=== PATIENT | female | born 1945 | race Caucasian/White ===

== ENCOUNTER → 2021-06-04 | Outpatient (CLI) | payer MEDICARE, OTHER ==
[~2021-06-04] MED LIST: ALENDRONATE SOD35 MG PO; AMBIEN10 MG PO; AMBIEN5 MG PO; ARICEPT10 MG PO; ASPIR-LOW81 MG PO; ATORVASTATIN CA40 MG PO; BACTRIM DS TAB1 EACH PO; BD ULTRA-FINE1 EAC2 MC; BENZTROPINE MESY1 MG PO; BUMETANIDE1 MG PO; BUMEX 1MG TABLET1 MG PO; BUPROPION XL150 MG PO; CARDIZEM CD300 MG PO; CATAPRES 0.1MG0.1 MG PO; CATAPRES0.2 MG PO; CATAPRES0.3 MG PO; CEFUROXIME250 MG PO; CHRONULAC20 GM/30 M PO; COGENTIN 2MG TAB2 MG PO; COLACE 100MG C100 MG PO; DILTIAZEM ER300 MG PO; DOC-Q-LAX TABL1 EACH PO; ELIQUIS2.5 MG PO; FEOSOL325 MG PO; FLAGYL500 MG PO; FLORINEF 0.1 M0.1 MG PO; HYDRALAZINE HC100 MG PO; HYDRALAZINE HCL50 MG PO; INJECTAFER750 MG/15 INJ; KEFLEX CAP 500500 MG PO; KLONOPIN TAB 00.5 MG PO; LANTUS INS100 UTS/M1 SQ; LEVEMIR100 UNIT/1 SQ; LIPITOR TAB 2020 MG PO; LIPITOR40 MG PO; LORTAB 5-325 M1 EACH PO; LORTAB 7.5-3251 EACH PO; MIRALAX17 GM PO; NORCO 10-325 T1 EACH PO; NOVOLOG 10100 UNITS/ SQ; NOVOLOG FL100 UNIT/1 SQ; OMEPRAZOLE20 MG PO; PERCOCET 10-321 EACH PO; PRILOSEC OTC20 MG PO; RISPERDAL1 MG PO; RISPERDAL2 MG PO; RISPERDAL3 MG PO; SENSIPAR30 MG PO; TAZTIA XT300 MG PO; THERAGRAN M TAB1 EA PO; TIAZAC180 MG PO; WELLBUTRIN XL300 M1 PO; [UNRECOGNIZED DRUG - OTHER] PO; [UNRECOGNIZED DRUG - OTHER] TP
== END ==
LOC: RAD 08:30
DX: R13.10 Dysphagia, unspecified (principal)
CPT/HCPCS: 74230; 92611-GN

== ENCOUNTER 2021-10-27 19:27 | Inpatient (IN) | payer MEDICARE, OTHER ==
[~2021-10-27] VITALS: Ht 162.6 cm; Wt 85.3 kg
[~2021-10-27 19:27] MED LIST changes: +DILTIAZEM 24HR240 M1 PO; -TAZTIA XT300 MG PO
[2021-10-27 20:26] LABS: HEMOGLOBIN 12.4 gm/dl (12.3-15.3); RED BLOOD COUNT 3.9 M/UL (4.00-5.10); WHITE BLOOD COUNT 20.1 K/UL (4.5-11.0)
[2021-10-28 04:28] LABS: HEMOGLOBIN 11.6 gm/dl (12.3-15.3); RED BLOOD COUNT 3.68 M/UL (4.00-5.10)
[2021-10-28 04:29] LABS: WHITE BLOOD COUNT 12.9 K/UL (4.5-11.0)
[2021-10-28] MEDS ORDERED: OMEPRAZOLE40 MG PO (10:00)
[2021-10-28] MEDS ORDERED: TRULICITY0.75 MG/0. SQ (10:01)
[2021-10-28] MEDS ORDERED: SENNA8.6 MG PO (10:01)
[2021-10-28] MEDS ORDERED: CRESTOR20 MG PO (10:01)
[2021-10-28] MEDS ORDERED: KLONOPIN TAB 00.5 MG PO (10:01)
[2021-10-28] MEDS ORDERED: GENERLAC10 GM/15 M PO (10:02)
[2021-10-28] MEDS ORDERED: TRESIBA FL100 UNIT/1 SQ (10:02)
[2021-10-28] MEDS ORDERED: CLONIDINE HCL0.2 MG PO (10:02)
[2021-10-28] MEDS ORDERED: TYLENOL 8 HOUR650 MG PO (10:03)
[2021-10-28] MEDS ORDERED: TRAMADOL HCL50 MG PO (10:03)
[2021-10-28] MEDS ORDERED: FERRO-TIME325 MG PO (10:04)
[2021-10-28] MEDS ORDERED: BUPROPION HCL75 MG PO (10:04)
[2021-10-28] MEDS ORDERED: DRISDOL1250 MCG PO (10:04)
[2021-10-28] MEDS ORDERED: HYDRALAZINE HCL50 MG PO (10:04)
[2021-10-28] MEDS ORDERED: SODIUM BICARBO650 MG PO (10:05)
[2021-10-28] MEDS ORDERED: NOVOLOG FL100 UNIT/1 SQ (10:05)
[2021-10-28] MEDS ORDERED: TYLENOL EXTRA500 MG PO (10:05)
[2021-10-28] MEDS ORDERED: MULTIVITAMIN1 EACH PO (10:06)
[2021-10-28] MEDS ORDERED: ANTACID LIQUID355 ML PO (10:06)
[2021-10-28] MEDS ORDERED: ARTHRITIS PAIN150 GM TOP (10:07)
[2021-10-28] MEDS ORDERED: ALOE VESTA 43% TOP (10:09)
[2021-10-28] MEDS ORDERED: BISACODYL10 MG PR (10:10)
[2021-10-29 03:11] LABS: HEMOGLOBIN 11.4 gm/dl (12.3-15.3); RED BLOOD COUNT 3.63 M/UL (4.00-5.10)
[2021-10-29 03:12] LABS: WHITE BLOOD COUNT 6.5 K/UL (4.5-11.0)
--- NOTE | 2021-10-29 04:02 | NUR ---
LAB CALLED WITH A CRITICAL BUN OF 100, PROVIDER MADE AWARE STATED "OK THANK YOU"
--- NOTE | 2021-10-29 11:51 | NUR ---
PTS FLUID CHANGED FROM NS TO NS BICARB AT THIS TIME
--- NOTE | 2021-10-29 17:04 | NUR ---
DR. HAGEN STATES CAN DC [facility] IF DR. OLMSTEAD PLACED ORDER, AND IF JUAN PLACED ORDER THEN CALL [facility].
--- NOTE | 2021-10-30 03:47 | NUR ---
PT BASELINE FROM START OF SHIFT ASSESSMENT GREATLY DECREASED WITHIN A 3 HOUR TIME FRAME. AFTER FURTHER ASSESSMENT, THE CODING MANAGER HOSPIALIST WAS CALLED, DR. BRADSHAW, ON 10/29/21 AT 2200 REGARDING PT'S NEW SUDDEN ONSET OF SOA, TACHYCARDIA, SHALLOW RESPIRATIONS, AUDIBLE WHEEZING IN [place] AND DIMINISHED SOUNDS IN RLL. CURRENTLY ON 2L NASAL CANNULA WITH AN OXYGEN SATURATION OF 84%. PT HAS H/O COPD, AFIB, CKD STAGE 3. NO CURRENT ORDERS FOR TELE/PULSE OX MONITORING. PER DR. BRADSHAW, VERBAL ORDERS PLACED FOR STAT EKG, STAT CHEST X-RAY, TELE/PULSE OX, DUO-NEBULIZER BREATHING TREATMENTS NEEDED, 2 SETS OF CARDIAC PANELS NOW WITH A REPEAT IN 3 HOURS, AND DISCONTINUE IV FLUIDS.
[2021-10-30 07:11] LABS: HEMOGLOBIN A1C 7.4 % (4.8-5.6)
--- NOTE | 2021-10-30 12:21 | NUR ---
PATIENT ASSESSED AT 0730 THIS MORNING, UPON SHIFT ARRIVAL. PATIENTS SHIFT ASSESSMENT CHARTED LATER IN THE SHIFT, DISREGARD TIME, INITAL ASSESSMENT OF PATIENT WAS COMPLETED AT 0730.
--- NOTE | 2021-10-30 15:59 | NUR ---
ORDER DC'D PER DR. HAGEN DUE TO DR. APPLE RECOMMENDATIONS
--- NOTE | 2021-10-30 17:04 | NUR ---
RECTAL TUBE PLACED PER DR. HOOD. PATIENT TOLERATED PROCEDURE WELL. LONI, LINEN SORTER AT BEDSIDE TO WITNESS INSERTION OF RECTAL TUBE. NO OUTPUT NOTED OF TUBE.
[2021-10-31 03:18] LABS: HEMOGLOBIN 9.7 gm/dl (12.3-15.3); WHITE BLOOD COUNT 5.3 K/UL (4.5-11.0)
[2021-10-31 03:28] LABS: RED BLOOD COUNT 3.11 M/UL (4.00-5.10)
[2021-11-01 03:45] LABS: HEMOGLOBIN 9.8 gm/dl (12.3-15.3); RED BLOOD COUNT 3.1 M/UL (4.00-5.10)
[2021-11-01 04:03] LABS: WHITE BLOOD COUNT 6.8 K/UL (4.5-11.0)
[2021-11-02 00:18] LABS: ADENOVIRUS F 40/41 Not Detected (Negative); ASTROVIRUS Not Detected (Negative); CAMPYLOBACTER Not Detected (Negative); CRYPTOSPORIDIUM Not Detected (Negative); E.COLI 0157 Not Detected (Negative); ENTAMOEBA HISTOLYTICA Not Detected (Negative); ENTEROAGGREGATIVE E.COLI (EAEC Not Detected (Negative); ENTEROPATHOGENIC E.COLI (EPEC) Not Detected (Negative); ENTEROTOXIGENIC E.COLI (ETEC) Not Detected (Negative); GIARDIA LAMBLIA Not Detected (Negative); NOROVIRUS GI/GII Not Detected (Negative); PLESIOMONAS SHIGELLOIDES Not Detected (Negative); ROTOVIRUS A Not Detected (Negative); SALMONELLA Not Detected (Negative); SAPOVIRUS Not Detected (Negative); SHIG/ENTEROINVAS.ECOLI (EIEC) Not Detected (Negative); SHIGA-LIK TOX.PRO.E.COLI (STEC Not Detected (Negative); VIBRIO Not Detected (Negative); VIBRIO CHOLERAE Not Detected (Negative); YERSINIA ENTEROCOLITICA Not Detected (Negative)
[2021-11-02 02:21] LABS: HEMOGLOBIN 8.9 gm/dl (12.3-15.3); RED BLOOD COUNT 2.82 M/UL (4.00-5.10); WHITE BLOOD COUNT 7.9 K/UL (4.5-11.0)
[2021-11-03 03:08] LABS: HEMOGLOBIN 9.1 gm/dl (12.3-15.3); RED BLOOD COUNT 2.91 M/UL (4.00-5.10); WHITE BLOOD COUNT 7.8 K/UL (4.5-11.0)
--- NOTE | 2021-11-03 10:50 | NUR ---
DR. CONCEPCION NOTIFIED PER DR. MCGRAW REQUEST FOR TEMPORARY DIALYSIS PLACEMENT
[2021-11-04 03:11] LABS: HEMOGLOBIN 8.8 gm/dl (12.3-15.3); RED BLOOD COUNT 2.81 M/UL (4.00-5.10); WHITE BLOOD COUNT 6.6 K/UL (4.5-11.0)
[2021-11-04 09:10] LABS: HBSAG SCREEN Negative (Negative); HCV AB <0.1 (0.0-0.9); HEP A AB, IGM Negative (Negative); HEP B CORE AB, IGM Negative (Negative)
[2021-11-05 03:21] LABS: HEMOGLOBIN 8.4 gm/dl (12.3-15.3); RED BLOOD COUNT 2.68 M/UL (4.00-5.10)
[2021-11-05 03:25] LABS: WHITE BLOOD COUNT 8.8 K/UL (4.5-11.0)
[2021-11-06 02:35] LABS: HEMOGLOBIN 8.7 gm/dl (12.3-15.3); RED BLOOD COUNT 2.72 M/UL (4.00-5.10); WHITE BLOOD COUNT 9.7 K/UL (4.5-11.0)
[2021-11-06 13:09] LABS: ANTI-CENTROMERE B ANTIBODIES <0.2 AI (0.0-0.9); ANTI-DNA (DS) AB QN <1 IU/mL (0-9); ANTI-JO-1 <0.2 AI (0.0-0.9); ANTICHROMATIN ANTIBODIES <0.2 AI (0.0-0.9); ANTIRIBOSOMAL P ANTIBODIES <0.2 AI (0.0-0.9); ANTISCLERODERMA-70 ANTIBODIES 1.3 AI (0.0-0.9); RNP ANTIBODIES <0.2 AI (0.0-0.9); SJOGREN'S ANTI-SS-A <0.2 AI (0.0-0.9); SJOGREN'S ANTI-SS-B <0.2 AI (0.0-0.9); SMITH ANTIBODIES <0.2 AI (0.0-0.9); SMITH/RNP ANTIBODIES 0.2 AI (0.0-0.9)
[2021-11-07 08:26] LABS: HEMOGLOBIN 8.7 gm/dl (12.3-15.3); RED BLOOD COUNT 2.8 M/UL (4.00-5.10); WHITE BLOOD COUNT 11.9 K/UL (4.5-11.0)
[2021-11-08 07:18] LABS: HEMOGLOBIN 7.6 gm/dl (12.3-15.3); WHITE BLOOD COUNT 11.5 K/UL (4.5-11.0)
[2021-11-08 07:32] LABS: RED BLOOD COUNT 2.38 M/UL (4.00-5.10)
[2021-11-08 07:43] LABS: BUN/CREATININE RATIO 19 (0-10)
--- NOTE | 2021-11-08 12:50 | NUR ---
PT NEW DIALYSIS CATH SITE IN RIGHT CHEST WALL WNL. NO BLEEDING NOTED. SITE COVERED WITH 2X2 AND TEGADERM. SPOKE WITH DR THIBODEAUX VIA TELEPHONE TO VERIFY THAT NEW CATH IS OK TO USE FOR DIALYSIS TODAY. DR THIBODEAUX STATED THAT IT WAS GOOD FOR USE TODAY. HE SAID THE TEMPORARY SITE LOCATED IN LEFT NECK COULD BE LEFT FOR IV ACCESS OR REMOVED. DIALYSIS NURSE NOTIFIED.
[2021-11-09 07:28] LABS: RED BLOOD COUNT 2.3 M/UL (4.00-5.10)
[2021-11-09 07:29] LABS: WHITE BLOOD COUNT 14.9 K/UL (4.5-11.0)
[2021-11-09 23:58] LABS: HEMOGLOBIN 8.5 gm/dl (12.3-15.3)
[2021-11-11 04:04] LABS: HEMOGLOBIN 8.5 gm/dl (12.3-15.3)
[2021-11-11 04:14] LABS: RED BLOOD COUNT 2.83 M/UL (4.00-5.10); WHITE BLOOD COUNT 11.1 K/UL (4.5-11.0)
[2021-11-12] MEDS ORDERED: LOPRESSOR 25 MG25 MG PO (11:24)
--- NOTE | 2021-11-12 13:17 | NUR ---
[facility] CALLED TO TRANSPORT PT
--- NOTE | 2021-11-12 17:01 | NUR ---
[facility] CALLED BACK FOR ETA. THEY STATE WILL HAVE SOMEONE CALL ME
== END 2021-11-12 19:09 | DRG 871 ==
LOC: ER1 19:27 → CDU 23:41 → M/S 23:41
PROVIDERS: Emergency Medicine; Internal Medicine; Internal Medicine Infectious Disease; Internal Medicine Nephrology; ADMIT Internal Medicine
PROC: 3E03329 Introduction of Other Anti-infective into Peripheral Vein, Percutaneous Approach (ICD-10-PCS; principal; 2021-10-28)
PROC: 05HN33Z Insertion of Infusion Device into Left Internal Jugular Vein, Percutaneous Approach (ICD-10-PCS; 2021-11-03)
PROC: 5A1D70Z Performance of Urinary Filtration, Intermittent, Less than 6 Hours Per Day (ICD-10-PCS; 2021-11-03)
PROC: 5A1D70Z Performance of Urinary Filtration, Intermittent, Less than 6 Hours Per Day (ICD-10-PCS; 2021-11-05)
PROC: 5A1D70Z Performance of Urinary Filtration, Intermittent, Less than 6 Hours Per Day (ICD-10-PCS; 2021-11-06)
PROC: 0JH63XZ Insertion of Tunneled Vascular Access Device into Chest Subcutaneous Tissue and Fascia, Percutaneous Approach (ICD-10-PCS; 2021-11-08)
PROC: 02HV33Z Insertion of Infusion Device into Superior Vena Cava, Percutaneous Approach (ICD-10-PCS; 2021-11-08)
PROC: 5A1D70Z Performance of Urinary Filtration, Intermittent, Less than 6 Hours Per Day (ICD-10-PCS; 2021-11-08)
PROC: 30233N1 Transfusion of Nonautologous Red Blood Cells into Peripheral Vein, Percutaneous Approach (ICD-10-PCS; 2021-11-09)
PROC: 5A1D70Z Performance of Urinary Filtration, Intermittent, Less than 6 Hours Per Day (ICD-10-PCS; 2021-11-10)
DX: A41.9 Sepsis, unspecified organism (principal); G93.41 Metabolic encephalopathy; E66.2 Morbid (severe) obesity with alveolar hypoventilation; A09 Infectious gastroenteritis and colitis, unspecified; N17.9 Acute kidney failure, unspecified; E87.2 Acidosis; K55.9 Vascular disorder of intestine, unspecified; N18.5 Chronic kidney disease, stage 5; Z20.822 Contact with and (suspected) exposure to COVID-19; E86.0 Dehydration; K59.00 Constipation, unspecified; K52.89 Other specified noninfective gastroenteritis and colitis; E11.22 Type 2 diabetes mellitus with diabetic chronic kidney disease; E11.40 Type 2 diabetes mellitus with diabetic neuropathy, unspecified; I48.0 Paroxysmal atrial fibrillation; K59.09 Other constipation; E87.5 Hyperkalemia; F03.90 Unspecified dementia, unspecified severity, without behavioral disturbance, psychotic disturbance, mood disturbance, and anxiety; R65.20 Severe sepsis without septic shock; Z66 Do not resuscitate; L89.152 Pressure ulcer of sacral region, stage 2; E83.52 Hypercalcemia; Z96.652 Presence of left artificial knee joint; R53.81 Other malaise; R13.10 Dysphagia, unspecified; E83.39 Other disorders of phosphorus metabolism; D63.1 Anemia in chronic kidney disease; Z68.32 Body mass index [BMI] 32.0-32.9, adult; Z83.3 Family history of diabetes mellitus; Z79.899 Other long term (current) drug therapy; Z74.01 Bed confinement status; Z99.2 Dependence on renal dialysis; Z79.82 Long term (current) use of aspirin
CPT/HCPCS: 0240U; 36415; 36430; 70450; 71045; 74018; 74230; 77001; 80048; 80053; 80074; 81001; 82550; 82553; 82607; 82728; 82746; 82962; 83036; 83516; 83540; 83550; 83605; 83735; 83880; 84100; 84439; 84443; 84484; 85014; 85018; 85025; 85027; 86140; 86235; 86431; 86850; 86900; 86901; 86920; 87040; 87086; 87507; 90935; 90937; 92526; 92610; 92611-GN; 93005; 94640; 94664; 94760; 96361; 96365; 96366; 96367; 96375; 97110; 97110-GP-CQ; 97162; 97166; 97530; 97530-GP-CQ; 99285; C1750; C1769; C9113; J0690; J1100; J1642; J1650; J2001; J2185; J2270; J2405; J2704; J3370; J3480; J7040; J7050; P9016; P9047

== ENCOUNTER 2021-11-14 12:22 | Observation (INO) | payer MEDICARE, OTHER ==
[~2021-11-14] VITALS: Ht 162.6 cm; Wt 84.8 kg
[~2021-11-14 12:22] MED LIST changes: +ALOE VESTA 43% TOP; +ANTACID LIQUID355 ML PO; +ARTHRITIS PAIN150 GM TOP; +BISACODYL10 MG PR; +BUPROPION HCL75 MG PO; +CLONIDINE HCL0.2 MG PO; +CRESTOR20 MG PO; +DRISDOL1250 MCG PO; +FERRO-TIME325 MG PO; +GENERLAC10 GM/15 M PO; +LOPRESSOR 25 MG25 MG PO; +MULTIVITAMIN1 EACH PO; +OMEPRAZOLE40 MG PO; +SENNA8.6 MG PO; +SODIUM BICARBO650 MG PO; +TRAMADOL HCL50 MG PO; +TRESIBA FL100 UNIT/1 SQ; +TRULICITY0.75 MG/0. SQ; +TYLENOL 8 HOUR650 MG PO; +TYLENOL EXTRA500 MG PO
[2021-11-14 14:05] LABS: HEMOGLOBIN 8.1 gm/dl (12.3-15.3); RED BLOOD COUNT 2.64 M/UL (4.00-5.10); WHITE BLOOD COUNT 7.7 K/UL (4.5-11.0)
[2021-11-14 14:39] LABS: BUN/CREATININE RATIO 18 (0-10)
[2021-11-15 06:36] LABS: HEMOGLOBIN 7.6 gm/dl (12.3-15.3); RED BLOOD COUNT 2.45 M/UL (4.00-5.10); WHITE BLOOD COUNT 6.1 K/UL (4.5-11.0)
[2021-11-16 02:21] LABS: HEMOGLOBIN 7.5 gm/dl (12.3-15.3); RED BLOOD COUNT 2.51 M/UL (4.00-5.10); WHITE BLOOD COUNT 5.8 K/UL (4.5-11.0)
[2021-11-16] MEDS ORDERED: LOPRESSOR 25 MG25 MG PO (11:41)
[2021-11-16] MEDS ORDERED: CALCIUM ACETAT667 M1 PO (11:41)
[2021-11-16] MEDS ORDERED: CEFUROXIME500 MG PO (11:49)
== END 2021-11-16 17:02 ==
LOC: ER1 12:22 → MED SURG 4 16:41 → CDU 16:41 → MED SURG 4 18:31
PROVIDERS: Physician Assistant; Physician Assistant Medical; ADMIT Internal Medicine
DX: G93.41 Metabolic encephalopathy (principal); N39.0 Urinary tract infection, site not specified; F03.90 Unspecified dementia, unspecified severity, without behavioral disturbance, psychotic disturbance, mood disturbance, and anxiety; F25.9 Schizoaffective disorder, unspecified; N17.9 Acute kidney failure, unspecified; I12.0 Hypertensive chronic kidney disease with stage 5 chronic kidney disease or end stage renal disease; E11.22 Type 2 diabetes mellitus with diabetic chronic kidney disease; N18.6 End stage renal disease; D63.1 Anemia in chronic kidney disease; I48.0 Paroxysmal atrial fibrillation; K52.9 Noninfective gastroenteritis and colitis, unspecified; L89.152 Pressure ulcer of sacral region, stage 2; J32.2 Chronic ethmoidal sinusitis; H70.92 Unspecified mastoiditis, left ear; K21.9 Gastro-esophageal reflux disease without esophagitis; Z72.3 Lack of physical exercise; E55.9 Vitamin D deficiency, unspecified; Z20.822 Contact with and (suspected) exposure to COVID-19; Z99.2 Dependence on renal dialysis; Z87.891 Personal history of nicotine dependence; Z79.82 Long term (current) use of aspirin; Z79.891 Long term (current) use of opiate analgesic; Z79.899 Other long term (current) drug therapy; Z88.0 Allergy status to penicillin
CPT/HCPCS: 0240U; 36415; 70450; 70551; 71045; 80048; 80053; 81001; 82550; 82553; 82962; 83605; 83690; 83735; 84100; 84484; 85025; 85027; 85610; 85730; 87040; 87086; 90937; 93005; 96374; 96375; 99285; G0378; J0696

== ENCOUNTER → 2021-12-24 | Outpatient (CLI) | payer MEDICARE, OTHER ==
[~2021-12-24] MED LIST changes: +CALCIUM ACETAT667 M1 PO; +CEFUROXIME500 MG PO
== END ==
LOC: US 13:46
DX: N18.5 Chronic kidney disease, stage 5 (principal)
CPT/HCPCS: 93985

== ENCOUNTER 2021-12-26 13:22 | Inpatient (IN) | payer MEDICARE, OTHER ==
[~2021-12-26] VITALS: Ht 162.6 cm; Wt 78.5 kg
[~2021-12-26 13:22] MED LIST changes: +CETIRIZINE HCL10 MG PO
[2021-12-26 14:49] LABS: HEMOGLOBIN 12.7 gm/dl (12.3-15.3); RED BLOOD COUNT 3.81 M/UL (4.00-5.10); WHITE BLOOD COUNT 10.4 K/UL (4.5-11.0)
[2021-12-26 15:31] LABS: BUN/CREATININE RATIO 10 (0-10)
[2021-12-27 03:35] LABS: HEMOGLOBIN 12.2 gm/dl (12.3-15.3); RED BLOOD COUNT 3.82 M/UL (4.00-5.10); WHITE BLOOD COUNT 11.5 K/UL (4.5-11.0)
[2021-12-27] MEDS ORDERED: ACETAMINOPHEN500 MG PO (13:20)
[2021-12-27] MEDS ORDERED: AMLODIPINE BESY10 MG PO (13:22)
[2021-12-27] MEDS ORDERED: FLONASE 0.05% N16 GM (13:27)
[2021-12-27] MEDS ORDERED: LISINOPRIL20 MG PO (13:29)
[2021-12-27] MEDS ORDERED: METOPROLOL TART25 MG PO (13:31)
[2021-12-27] MEDS ORDERED: PHENERGAN IM25 MG/ML IM (13:34)
[2021-12-27] MEDS ORDERED: RENVELA800 MG PO (13:35)
[2021-12-27] MEDS ORDERED: SODIUM CHLORIDE15 ML INH (13:38)
[2021-12-27] MEDS ORDERED: ONDANSETRON HCL4 MG PO (13:41)
[2021-12-28 03:47] LABS: HEMOGLOBIN 12.6 gm/dl (12.3-15.3); RED BLOOD COUNT 3.99 M/UL (4.00-5.10)
--- NOTE | 2021-12-29 15:31 | NUR ---
1531: NOTIFIED MD OF PT'S BP. MD STATES LONG PT IS AOX3 AND VERBAL TO CONTINUE TO MONITOR AND NOTIFY OF ANY CHANGES.
[2021-12-29] MEDS ORDERED: TRAMADOL HCL50 MG PO (15:38)
[2021-12-29] MEDS ORDERED: KLONOPIN TAB 00.5 MG PO (15:38)
[2021-12-30 03:38] LABS: WHITE BLOOD COUNT 10.8 K/UL (4.5-11.0)
[2021-12-30 03:41] LABS: HEMOGLOBIN 10.4 gm/dl (12.3-15.3); RED BLOOD COUNT 3.32 M/UL (4.00-5.10)
[2021-12-30] MEDS ORDERED: LOPRESSOR 25 MG25 MG PO (17:15)
[2021-12-31] MEDS ORDERED: PERCOCET 5-3251 EACH PO (12:03)
== END 2021-12-31 15:38 | DRG 391 ==
LOC: ER1 13:22 → M/S 17:31 → CDU 17:31 → M/S 12-27 08:49
PROVIDERS: Emergency Medicine; ADMIT Internal Medicine
PROC: 5A1D70Z Performance of Urinary Filtration, Intermittent, Less than 6 Hours Per Day (ICD-10-PCS; 2021-12-27)
PROC: 5A1D70Z Performance of Urinary Filtration, Intermittent, Less than 6 Hours Per Day (ICD-10-PCS; principal; 2021-12-29)
DX: A09 Infectious gastroenteritis and colitis, unspecified (principal); N18.6 End stage renal disease; N30.00 Acute cystitis without hematuria; I12.0 Hypertensive chronic kidney disease with stage 5 chronic kidney disease or end stage renal disease; Z20.822 Contact with and (suspected) exposure to COVID-19; R13.10 Dysphagia, unspecified; L89.152 Pressure ulcer of sacral region, stage 2; H57.12 Ocular pain, left eye; E83.39 Other disorders of phosphorus metabolism; K21.9 Gastro-esophageal reflux disease without esophagitis; F25.9 Schizoaffective disorder, unspecified; D50.9 Iron deficiency anemia, unspecified; F03.90 Unspecified dementia, unspecified severity, without behavioral disturbance, psychotic disturbance, mood disturbance, and anxiety; J43.9 Emphysema, unspecified; D63.1 Anemia in chronic kidney disease; E11.22 Type 2 diabetes mellitus with diabetic chronic kidney disease; I48.0 Paroxysmal atrial fibrillation; Z60.0 Problems of adjustment to life-cycle transitions; Z79.01 Long term (current) use of anticoagulants; Z88.0 Allergy status to penicillin; Z88.8 Allergy status to other drugs, medicaments and biological substances; Z87.891 Personal history of nicotine dependence; Z99.2 Dependence on renal dialysis; Z74.01 Bed confinement status
CPT/HCPCS: 36415; 74018; 78226; 80048; 80053; 81001; 82550; 82553; 82962; 83605; 83690; 84484; 85025; 85027; 87040; 87077; 87086; 87186; 93005; 96365; 96372; 96375; 99285; A9537; G0378; J1644; J2185; J2270; J2405; J2550; U0002

== ENCOUNTER 2022-01-03 05:38 | Observation (INO) | payer MEDICARE, OTHER ==
[~2022-01-03] VITALS: Ht 162.6 cm; Wt 78.0 kg
[~2022-01-03 05:38] MED LIST changes: +ACETAMINOPHEN500 MG PO; +AMLODIPINE BESY10 MG PO; +FLONASE 0.05% N16 GM; +LISINOPRIL20 MG PO; +METOPROLOL TART25 MG PO; +ONDANSETRON HCL4 MG PO; +PERCOCET 5-3251 EACH PO; +PHENERGAN IM25 MG/ML IM; +RENVELA800 MG PO; +SODIUM CHLORIDE15 ML INH
[2022-01-03 06:48] LABS: HEMOGLOBIN 10.1 gm/dl (12.3-15.3); RED BLOOD COUNT 3.2 M/UL (4.00-5.10)
[2022-01-03] MEDS ORDERED: ONDANSETRON4 MG/2 ML INJ (10:53)
[2022-01-04 06:42] LABS: RED BLOOD COUNT 3.19 M/UL (4.00-5.10); WHITE BLOOD COUNT 7.3 K/UL (4.5-11.0)
== END 2022-01-04 15:32 | disposition home or self-care (01) ==
LOC: ER1 05:38 → CDU 09:31 → MED SURG 4 09:31
PROVIDERS: Physician Assistant; ADMIT Internal Medicine
DX: R10.9 Unspecified abdominal pain (principal); Z20.822 Contact with and (suspected) exposure to COVID-19; D53.9 Nutritional anemia, unspecified; I48.0 Paroxysmal atrial fibrillation; I12.0 Hypertensive chronic kidney disease with stage 5 chronic kidney disease or end stage renal disease; E11.22 Type 2 diabetes mellitus with diabetic chronic kidney disease; N18.6 End stage renal disease; Z66 Do not resuscitate; E78.5 Hyperlipidemia, unspecified; Z99.2 Dependence on renal dialysis; F25.9 Schizoaffective disorder, unspecified; E87.1 Hypo-osmolality and hyponatremia; K59.00 Constipation, unspecified; E66.01 Morbid (severe) obesity due to excess calories; Z68.29 Body mass index [BMI] 29.0-29.9, adult; Z79.4 Long term (current) use of insulin; Z79.51 Long term (current) use of inhaled steroids; Z79.899 Other long term (current) drug therapy; Z87.891 Personal history of nicotine dependence; Z88.0 Allergy status to penicillin; Z88.5 Allergy status to narcotic agent
CPT/HCPCS: 80053; 82962; 83690; 83735; 85025; 92610; 94760; 96374; 96375; 99285; C9113; G0378; J2270; J2405; U0002

== ENCOUNTER 2022-01-08 06:03 | Emergency (ER) | payer MEDICARE, OTHER ==
[~2022-01-08 06:03] MED LIST changes: +ONDANSETRON4 MG/2 ML INJ
[2022-01-08 06:52] LABS: HEMOGLOBIN 11.1 gm/dl (12.3-15.3); RED BLOOD COUNT 3.54 M/UL (4.00-5.10); WHITE BLOOD COUNT 9.2 K/UL (4.5-11.0)
== END 2022-01-08 18:18 | disposition home or self-care (01) ==
LOC: ER1 06:03
PROVIDERS: Physician Assistant
DX: J40 Bronchitis, not specified as acute or chronic (principal); I13.10 Hypertensive heart and chronic kidney disease without heart failure, with stage 1 through stage 4 chronic kidney disease, or unspecified chronic kidney disease; I48.91 Unspecified atrial fibrillation; E11.22 Type 2 diabetes mellitus with diabetic chronic kidney disease; N18.6 End stage renal disease; R53.1 Weakness; Z20.822 Contact with and (suspected) exposure to COVID-19; E78.5 Hyperlipidemia, unspecified; Z88.0 Allergy status to penicillin; Z88.5 Allergy status to narcotic agent
CPT/HCPCS: 71045; 80053; 82550; 82553; 84484; 85025; 87081; 87880; 93005; 99285; U0002